=== PATIENT | female | born 1980 | race African-American/Black ===

== ENCOUNTER 2025-03-06 14:02 | Emergency (ER) | payer OTHER ==
[~2025-03-06] VITALS: Ht 172.7 cm; Wt 77.0 kg
[2025-03-06 14:05] VITALS: O2SAT 99
[2025-03-06] MEDS: LORAZEPAM 1MG TABLET PO ONE (14:55)
[2025-03-06 15:38] LABS: BASOPHILS % 0.5 % (0.0-2.0); EOSINOPHILS % 0.5 % (0.0-5.0); HEMATOCRIT. 36.6 % (36.0-48.0); HEMOGLOBIN. 11.7 g/dL (12.0-16.0); LYMPHOCYTES % 28.4 % (20.0-50.0); MEAN PLATELET VOLUME 8.4 fl (7.4-10.4); MONOCYTES % 9.8 % (2.0-8.0); NEUTROPHILS % 60.8 % (40.0-76.0); PLATELET 361 x1000/uL (130-400); RED BLOOD CELL COUNT 4.21 mill/uL (4.2-5.4); RED CELL DISTRIBUTION WIDTH 14.9 % (11.6-14.6)
[2025-03-06 15:52] LABS: CREATININE 0.8 mg/dL (0.6-1.0)
[2025-03-06 15:53] LABS: UREA NITROGEN BLOOD 7 mg/dL (9-23)
[2025-03-06 15:54] LABS: ASPARTATE AMINOTRANSFERASE 20 IU/L (<34); BILIRUBIN DIRECT 0.1 mg/dL (<=3.0); TROPONIN I HIGH SENSITIVITY < 4 ng/L (3.0-34)
[2025-03-06 15:55] LABS: BILIRUBIN TOTAL 0.5 mg/dL (0.1-1.0); PROTEIN TOTAL 7.7 g/dL (6.0-8.3)
[2025-03-06 17:07] VITALS: BP 138/87; PULSE 66; RESP 16; TEMP 36.8; O2SAT 99
== END 2025-03-06 17:10 | disposition home or self-care (01) ==
LOC: ER 14:02 → CMPBEDREQ 03-07 03:16
DX: R00.2 Palpitations (principal); F41.0 Panic disorder [episodic paroxysmal anxiety]; Z88.0 Allergy status to penicillin
CPT/HCPCS: 80076; 80048; 83690; 85025; 84484; 36415; 71045; 93005; 99285; Z7610; A4606